=== PATIENT | female | born 1980 | race African-American/Black ===

== ENCOUNTER 2019-08-05 17:42 | Emergency (ER) | payer SELFPAY ==
[2019-08-05] MEDS ORDERED: FLUC150T PO (18:24)
[2019-08-05] MEDS ORDERED: magic mouthwash PO (18:24)
[2019-08-05] MEDS ORDERED: AMOX500T PO (18:24)
--- NOTE | 2019-08-05 18:24 | PHYS DOC ---
Past History Past Medical History: No Pertinent History Past Surgical History: No Surgical History Smoking: Non-smoker Alcohol Use: None Drug Use: None Adult General Chief Complaint Chief Complaint: SORE THROAT HPI HPI Patient is a 38-year-old female presents complaining of sore throat that began yesterday. Increased pain with swallowing. No difficulty breathing. No relief with [id number] medicines. No sick family members or contacts. There've been subjective fevers but she has not taken her own temperature. Pain is moderate in intensity. No nausea or vomiting or diarrhea. No flu vaccine this season.[] Review of Systems Review of Systems Constitutional: Denies fever or chills [] Eyes: Denies change in visual acuity, redness, or eye pain [] HENT: Denies nasal congestion or ear pain, see history of present illness[] Respiratory: Denies cough or shortness of breath [] Cardiovascular: No chest pain or palpitations[] GI: Denies abdominal pain, nausea, vomiting, bloody stools or diarrhea [] : Denies dysuria or hematuria [] Musculoskeletal: Denies back pain or joint pain [] Integument: Denies rash or skin lesions [] Neurologic: Denies headache, focal weakness or sensory changes [] Endocrine: Denies polyuria or polydipsia [] All other systems were reviewed and found to be within normal limits, except as documented in this note. Physical Exam Physical Exam Constitutional: Well developed, well nourished, no acute distress, non-toxic appearance. [] HENT: Normocephalic, atraumatic, bilateral external ears normal, oropharynx moist, enlarged tonsils bilaterally symmetric with exudates. Uvula is midline., nose normal. [] Eyes: PERRLA, EOMI, conjunctiva normal, no discharge. [] Neck: Normal range of motion, no tenderness, supple, no stridor. Anterior chain cervical lymphadenopathy is present, no meningismus[] Cardiovascular:Heart rate regular rhythm, no murmur [] Lungs & Thorax: Bilateral breath sounds clear to auscultation [] Abdomen: Bowel sounds normal, soft, no tenderness, no masses, no pulsatile mass es. No hepato-or splenomegaly [] Skin: Warm, dry, no erythema, no rash. [] Back: No tenderness, no CVA tenderness. [] Extremities: No tenderness, no cyanosis, no clubbing, ROM intact, no edema. [] Neurologic: Alert and oriented X 3, normal motor function, normal sensory function, no focal deficits noted. [] Psychologic: Affect normal, judgement normal, mood normal. [] EKG EKG [] Radiology/Procedures Radiology/Procedures [] Course & Med Decision Making Course & Med Decision Making Pertinent Labs and Imaging studies reviewed. (See chart for details) ED course: Patient arrived, was placed in bed, and tolerated exam well. Findings and plan were discussed with the patient who voiced understanding. All questions were answered. She was discharged in improved condition. Medical decision making: Patient with an exudative pharyngitis, will cover for strep pharyngitis. There is no evidence of meningitis or encephalitis. Nontoxic patient. No evidence of oral intake intolerance.[] Dragon Disclaimer Dragon Disclaimer This electronic medical record was generated, in whole or in part, using a voice recognition dictation system. Departure Departure: Impression: Primary Impression: Exudative pharyngitis Disposition: HOME, SELF-CARE Condition: IMPROVED Referrals: PCPDORI (PCP) Patient Instructions: Viral and Bacterial Pharyngitis Additional Instructions: Drink plenty of fluids. Take the medication as prescribed. Take the Diflucan after the completion of the amoxicillin if you develop symptoms of a yeast infection. Return to the ER if worsening pain or any other concerns. Scripts [magic mouthwash] No Conflict Check 10 ML PO Q3-4HRS PRN for SORE THROAT, #120 ML 1:1:1 Maalox: 2% viscous lidocaine: Benadryl Swish and swallow every 3-4 hours as needed for sore throat Prov: SANDRA ALLEN DO 08/05/19 Amoxicillin (AMOXICILLIN) 500 Mg Tablet 500 MG PO TID for pharyngitis for 10 Days, #30 TAB Prov: SANDRA ALLEN DO 08/05/19 Fluconazole (DIFLUCAN) 150 Mg Tablet 1 TAB PO ONCE for vaginal candidiasis, #1 TAB Prov: SANDRA ALLEN DO 08/05/19 SANDRA ALLEN DO Aug 05, 2019 18:24
[2019-08-05 18:35] VITALS: BP 164/95
== END 2019-08-05 18:35 | disposition home or self-care (01) ==
LOC: ER 17:42
DX: J02.9 Acute pharyngitis, unspecified (principal)
CPT/HCPCS: 99283

== ENCOUNTER 2020-06-19 23:20 | Emergency (ER) | payer SELFPAY ==
[~2020-06-19] VITALS: Ht 157.5 cm; Wt 127.2 kg
[~2020-06-19 23:20] MED LIST: AMOX500T PO; FLUC150T PO; magic mouthwash PO
[2020-06-19] MEDS ORDERED: IV RINGERS SOLUTION,LACTATED 1,000 ML IV SCH (23:23)
--- NOTE | 2020-06-19 23:23 | PHYS DOC ---
Past History Past Medical History: No Pertinent History Additional Past Medical Histor: overactive thyroid Past Surgical History: No Surgical History Smoking: Non-smoker Alcohol Use: None Drug Use: None General Adult HPI: HPI: ".. I ve been having chest pain for last four days.. devang here in the center... just never completely goes away..." Patient is a 39 year old female who presents with above hx and complaints central chest pain. Pain the chest is somewhat a pleuritic component. Patient denies any trauma. Patient denies any previous history of cardiac disorders or blood clots. Patient does have a family history of blood clots on her mother side. Mother has had several episodes of DVTs and pulmonary embolisms. Patient normally follows with Drs. zacarias at [facility] on [address]. Pt. works for [employer] in [place]. Patient does not use tobacco. Review of Systems: Review of Systems: Constitutional: Denies fever or chills Eyes: Denies change in visual acuity HENT: Denies nasal congestion or sore throat Respiratory: Complaints of chest s discomfort Cardiovascular: Complaints of chest pain GI: Denies abdominal pain, nausea, vomiting, bloody stools or diarrhea : Denies dysuria Musculoskeletal: Denies back pain or joint pain Integument: Denies rash Neurologic: Denies headache, focal weakness or sensory changes Endocrine: Denies polyuria or polydipsia Lymphatic: Denies swollen glands Psychiatric: Denies depression or anxiety Heart Score: HEART Score for Chest Pain: HEART Score for Chest Pain Response (Comments) Value History Slighlty/Non-Suspicious 0 ECG Normal 0 Age < 45 0 Risk Factors 1 or 2 Risk Factors 1 Troponin < Normal Limit 0 Total 1 Risk Factors: Risk Factors: DM, Current or recent (<one month) smoker, HTN, HLP, family history of CAD, obesity. Risk Scores: Score 0 - 3: 2.5% MACE over next 6 weeks - Discharge Home Score 4 - 6: 20.3% MACE over next 6 weeks - Admit for Clinical Observation Score 7 - 10: 72.7% MACE over next 6 weeks - Early Invasive Strategies Family History: Family History: Mother has blood clots Current Medications: Current Meds: See nursing for home meds Allergies: Allergies: Allergies Coded Allergies Type Severity Reaction Last Updated Verified No Known Drug Allergies 08/05/19 No Physical Exam: PE: Constitutional: Moderate acute distress, non-toxic appearance. [] HENT: Normocephalic, atraumatic, bilateral external ears normal, oropharynx moist, no oral exudates, nose normal. [] Eyes: PERRLA, EOMI, conjunctiva normal, no discharge. [] Neck: Normal range of motion, no tenderness, supple, no stridor. [] Cardiovascular:Heart rate regular rhythm, no murmur [] Lungs & Thorax: Bilateral breath sounds equal apex on auscultation [] Abdomen: Bowel sounds normal, soft, no tenderness, no masses, no pulsatile masses. Obese Skin: Warm, dry, no erythema, no rash. [] Back: No tenderness, no CVA tenderness. [] Extremities: No tenderness, no cyanosis, no clubbing, ROM intact, no edema. No cording appreciated Neurologic: Alert and oriented X 3, normal motor function, normal sensory function, no focal deficits noted. [] Psychologic: Affect anxious, judgement normal, mood normal. [] EKG: EKG: My interpretation EKG shows a sinus rhythm at 77 bpm. Mild leftward axis. No findings of acute STEMI of contralateral changes. My interpretation of second EKG at 433 , shows sinus rhythm at 69 bpm. No findings acute STEMI of contralateral changes. No acute acute morphology changes from prior EKG . [] Radiology/Procedures: Radiology/Procedures: [][place] [address] IMAGING REPORT Signed PATIENT: BAILEY JAMES DACCOUNT: [id number] : 1980 LOCATION: ER AGE: 39 SEX: F EXAM STATUS: REG ER ORD. PHYSICIAN: KIMBERLY JACOB MD REASON: Chest pain, OMNI 350, 100ml PROCEDURE: CT ANGIOGRAPHY CHEST INDICATION: Reason: Chest pain, OMNI 350, 100ml / Spl. Instructions: / History: COMPARISON: None. TECHNIQUE: Axial CT images obtained through the chest. Intravenous contrast utilized. Angiogram 3D images processed per protocol. One or more of the following individualized dose reduction techniques were utilized for this examination: 1. Automated exposure control; 2. Adjustment of the mA and/or kV according to patient size; 3. Use of iterative reconstruction technique. FINDINGS: The thyroid is enlarged. There is some heterogeneity. There is some regions of bilateral lucency within the lung parenchyma which could be from air trapping. No evidence of pneumothorax. No focal airspace consolidation to suggest pneumonia. Soft tissue density anterior mediastinum. Scattered calcific atherosclerosis. Portion of ascending thoracic aorta is obscured by motion without aneurysm at visualized portions of thoracic aorta. Small focus of enhancement at the anterior mediastinum, could be from a vessel coursing through the region. Degenerative changes spine. No embolus in the main, right main or left main pulmonary artery. Peripheral evaluation is limited secondary to contrast bolus timing. Mild wedge deformities of multiple vertebral bodies including T5, T6, T7, T8 T10, T11. IMPRESSION: No embolus in the main, right main or left main pulmonary artery with peripheral vessels not well evaluated secondary to contrast bolus timing. There is some regions of lucency lung parenchyma bilaterally which can be seen with air trapping. Enlarged thyroid with heterogeneity. May be helpful to obtain a nonemergent ultrasound to assess for thyroid nodule. Multiple wedge deformities of the thoracic vertebral bodies. Could be from mild compression deformity of unknown age or congenital in nature. Electronically signed by: Odalis Cooper MD (06/20/2020 3:53 AM) [id number] DICTATED AND SIGNED BY: ODALIS COOPER MD DATE: 06/20/20 0353 CC: KIMBERLY JACOB MD; PCP,NO ~ Course & Med Decision Making: Course & Med Decision Making Pertinent Labs and Imaging studies reviewed. (See chart for details) Discussed options of treatment with patient. Patient declines admission for chest pain evaluation. Patient requests a repeat troponin and EKG and she will make her decision with those results. Patient states she will follow-up with her primary care doctor down on the plasma. Patient take a daily aspirin. Schedule a follow-up with her primary physician. Return if any concerns. Consider outpatient stress testing. Discussed with patient possibility of missed pulmonary embolism or DVT patient exhibits UCAR capacity. Impression: 1. Chest Pain 2. Elevated D-dimer 1.34 3. Hypo-magnesium 1.6 [] Twylaon Disclaimer: Jeanmarie Disclaimer: This electronic medical record was generated, in whole or in part, using a voice recognition dictation system. Departure Departure: Disposition: 01 HOME/RESIDENCE PRIOR TO ADM Condition: STABLE Referrals: PCPDORI (PCP) Justification of Admission: Justification of Admission: Justification of Admission Dx: Yes Comments: chest pain Dragon Disclaimer This chart was dictated in whole or in part using Voice Recognition software in a busy, high-work load, and often noisy Emergency Department environment. It may contain unintended and wholly unrecognized errors or omissions. KIMBERLY JACOB MD Jun 19, 2020 23:23
[2020-06-19] MEDS ORDERED: ASPIRIN CHEWABLE 81 MG TABLET. PO ONE (23:30)
--- NOTE | 2020-06-19 23:51 | EKG ---
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
[2020-06-19 23:57] LABS: BASO # 0.1 x10^3/uL (0.0-0.2); BASO % 2 % (0-3); EOS # 0.2 x10^3/uL (0.0-0.7); EOS % 3 % (0-3); HEMATOCRIT 38.4 % (36.0-47.0); HEMOGLOBIN 12.9 g/dL (12.0-15.5); LYMPH # 3.3 x10^3/uL (1.0-4.8); LYMPH % 47 % (24-48); MEAN CORPUSCULAR HEMOGLOBIN 28 pg (25-35); MEAN CORPUSCULAR HGB CONC 34 g/dL (31-37); MEAN CORPUSCULAR VOLUME 83 fL (79-100); MONO # 0.5 x10^3/uL (0.0-1.1); MONO % 7 % (0-9); NEUT # 2.9 x10^3uL (1.8-7.7); NEUT % 41 % (31-73); PLATELET COUNT 198 x10^3/uL (140-400); RED BLOOD COUNT 4.62 x10^6/uL (3.50-5.40); RED CELL DISTRIBUTION WIDTH 13.4 % (11.5-14.5); WHITE BLOOD COUNT 7.1 x10^3/uL (4.0-11.0)
[2020-06-20 00:03] LABS: CALCIUM 8.8 mg/dL (8.5-10.1); CREATININE 0.8 mg/dL (0.6-1.0); GFR 97.1; POTASSIUM 3.5 mmol/L (3.5-5.1)
[2020-06-20 00:16] LABS: ALBUMIN 3.1 g/dL (3.4-5.0); DIRECT BILIRUBIN 0.1 mg/dL (0.0-0.2); MAGNESIUM 1.6 mg/dL (1.8-2.4); TOTAL BILIRUBIN 0.3 mg/dL (0.2-1.0); TOTAL PROTEIN 7.9 g/dL (6.4-8.2)
[2020-06-20 01:00] VITALS: BP 132/106
[2020-06-20] MEDS ORDERED: IV RINGERS SOLUTION,LACTATED 1,000 ML IV ONE (01:00)
[2020-06-20] MEDS ORDERED: ENOXAPARIN ** NOTE DOSE ** SYRINGE SQ ONE (02:15)
[2020-06-20] MEDS ORDERED: IOHEXOL 350 MG/ML 100 ML VIAL. IV ONE (02:15)
[2020-06-20] MEDS ORDERED: CONTRAST GIVEN. MC PRN (02:30)
[2020-06-20 03:17] LABS: BILIRUBIN,URINE NEG (NEG); CLARITY,URINE HAZY; COLOR,URINE YELLOW; GLUCOSE,URINE NEG (NEG); NITRITE,URINE NEG (NEG); UROBILINOGEN,URINE 0.2 mg/dL (0.2 mg/dL)
[2020-06-20 03:18] LABS: BACTERIA,URINE FEW /HPF (0-FEW); RBC,URINE OCC /HPF (0-2); SQUAMOUS EPITHELIAL CELL,UR MANY /LPF
[2020-06-20 03:24] LABS: AMPHETAMINE/METHAMPHETAMINE NEG (NEG); BARBITURATES NEG (NEG); BENZODIAZEPINES NEG (NEG); CANNABINOIDS POS (NEG); COCAINE NEG (NEG); METHADONE NEG (NEG); OPIATES NEG (NEG); PHENCYCLIDINE NEG (NEG)
--- NOTE | 2020-06-20 03:56 | RAD ---
INDICATION: Reason: Chest pain, OMNI 350, 100ml / Spl. Instructions: / History: COMPARISON: None. TECHNIQUE: Axial CT images obtained through the chest. Intravenous contrast utilized. Angiogram 3D images processed per protocol. One or more of the following individualized dose reduction techniques were utilized for this examination: 1. Automated exposure control; 2. Adjustment of the mA and/or kV according to patient size; 3. Use of iterative reconstruction technique. FINDINGS: The thyroid is enlarged. There is some heterogeneity. There is some regions of bilateral lucency within the lung parenchyma which could be from air trapping. No evidence of pneumothorax. No focal airspace consolidation to suggest pneumonia. Soft tissue density anterior mediastinum. Scattered calcific atherosclerosis. Portion of ascending thoracic aorta is obscured by motion without aneurysm at visualized portions of thoracic aorta. Small focus of enhancement at the anterior mediastinum, could be from a vessel coursing through the region. Degenerative changes spine. No embolus in the main, right main or left main pulmonary artery. Peripheral evaluation is limited secondary to contrast bolus timing. Mild wedge deformities of multiple vertebral bodies including T5, T6, T7, T8 T10, T11. IMPRESSION: No embolus in the main, right main or left main pulmonary artery with peripheral vessels not well evaluated secondary to contrast bolus timing. There is some regions of lucency lung parenchyma bilaterally which can be seen with air trapping. Enlarged thyroid with heterogeneity. May be helpful to obtain a nonemergent ultrasound to assess for thyroid nodule. Multiple wedge deformities of the thoracic vertebral bodies. Could be from mild compression deformity of unknown age or congenital in nature. Electronically signed by: Shine Cooper MD (06/20/2020 3:53 AM) [id number]
--- NOTE | 2020-06-20 04:15 | RAD ---
INDICATION: Reason: dyspnea / Spl. Instructions: / History: COMPARISON: Same day FINDINGS: 2 view of chest obtained. Cardiac silhouette is upper limits of normal in size. Mild interstitial prominence without well-defined focal infiltrate is not seen. Degenerative changes the spine IMPRESSION: * Mild interstitial prominence without a well-defined focal infiltrate. Electronically signed by: Shine Cooper MD (06/20/2020 4:12 AM) [id number]
--- NOTE | 2020-06-20 04:43 | EKG ---
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
[2020-06-20] MEDS ORDERED: MAGNESIUM HYDROXIDE 2,400 MG/30 ML ORAL.SUSP. PO ONE (04:45)
[2020-06-20 13:18] LABS: HDLC 59 mg/dL (40-60); LDLC 102 mg/dL (0-100); TRIGLYCERIDES 66 mg/dL (0-150); VLDLC 13 mg/dL (0-40)
[2020-06-20 13:19] LABS: THYROID STIM HORMONE (TSH) < 0.007 uIU/mL (0.358-3.740)
== END 2020-06-20 05:30 | disposition home or self-care (01) ==
LOC: ER 23:20
DX: R07.89 Other chest pain (principal); R79.1 Abnormal coagulation profile; E83.42 Hypomagnesemia
CPT/HCPCS: 36415; 71046; 71275; 80048; 80061; 80076; 80307; 81001; 81025; 82550; 83690; 83735; 83880; 84443; 84484; 84702; 85025; 85379; 85610; 85730; 93005; 96372; 99285; J1650; J7120; Q9967

== ENCOUNTER 2020-09-04 17:51 | Emergency (ER) | payer MEDICAID ==
[~2020-09-04] VITALS: Ht 157.5 cm; Wt 100.0 kg
[2020-09-04 18:12] VITALS: BP 175/114
[2020-09-04] MEDS ORDERED: PRED50TA PO (18:22)
[2020-09-04] MEDS ORDERED: AMOX875T PO (18:22)
--- NOTE | 2020-09-04 18:22 | PHYS DOC ---
Past History Past Medical History: Hyperthyroid Additional Past Medical Histor: overactive thyroid Past Surgical History: No Surgical History Smoking: Non-smoker Alcohol Use: None Drug Use: None Adult General Chief Complaint Chief Complaint: SORE THROAT HPI HPI Patient is a 39-year-old female patient presenting to the ED today with complaining of a sore throat with enlarged tonsils that began 3 days ago. Patient denies any fever. Denies any difficulty swallowing. She states this is her typical presentation for her for tonsillitis. She states she is aware she needs to have her tonsils removed but has not made arrangements yet. Review of Systems Review of Systems Constitutional: Denies fever or chills [] Eyes: Denies change in visual acuity, redness, or eye pain [] HENT: Reports sore throat. Reports enlarged tonsils denies nasal congestion Respiratory: Denies cough or shortness of breath [] Cardiovascular: No additional information not addressed in HPI [] GI: Denies abdominal pain, nausea, vomiting, bloody stools or diarrhea [] : Denies dysuria or hematuria [] Musculoskeletal: Denies back pain or joint pain [] Integument: Denies rash or skin lesions [] Neurologic: Denies headache, focal weakness or sensory changes [] [] All other systems were reviewed and found to be within normal limits, except as documented in this note. Allergies Allergies Allergies Coded Allergies Type Severity Reaction Last Updated Verified No Known Drug Allergies 09/04/20 No Physical Exam Physical Exam Constitutional: Well developed, well nourished, no acute distress, non-toxic appearance. [] HENT: Normocephalic, atraumatic, bilateral external ears normal, oropharynx moist, no oral exudates, nose normal. [] Midline uvula. +3 tonsils noted on the right with small amount of exudate, +1 tonsils noted on the left. +2 anterior cervical adenopathy on the right, +1 anterior cervical adenopathy on the left Eyes: PERRLA, EOMI, conjunctiva normal, no discharge. [] Neck: Normal range of motion, no tenderness, supple, no stridor. [] Cardiovascular:Heart rate regular rhythm, no murmur [] Lungs & Thorax: Bilateral breath sounds clear to auscultation [] Abdomen: Bowel sounds normal, soft, no tenderness, no masses, no pulsatile masses. [] Skin: Warm, dry, no erythema, no rash. [] Back: No tenderness, no CVA tenderness. [] Extremities: No tenderness, no cyanosis, no clubbing, ROM intact, no edema. [] Neurologic: Alert and oriented X 3, normal motor function, normal sensory function, no focal deficits noted. [] Psychologic: Affect normal, judgement normal, mood normal. [] Current Patient Data Vital Signs Vital Signs Date Time Temp Pulse Resp B/P (MAP) Pulse Ox O2 Delivery O2 Flow Rate FiO2 09/04/20 18:12 98.5 76 18 175/114 (134) 76 Room Air EKG EKG [] Radiology/Procedures Radiology/Procedures [] Heart Score Risk Factors: Risk Factors: DM, Current or recent (<one month) smoker, HTN, HLP, family history of CAD, obesity. Risk Scores: Risk Factors: DM, Current or recent (<one month) smoker, HTN, HLP, family history of CAD, obesity. Course & Med Decision Making Course & Med Decision Making Pertinent Labs and Imaging studies reviewed. (See chart for details) This is a 39-year-old female patient with physical exam of tonsillitis. This appears to be a chronic issue with this patient. She was discharged with amoxicillin and prednisone. Recommended following up with ENT for possible tonsillectomy. Discharged to home, provided return precautions Dragon Disclaimer Dragon Disclaimer This electronic medical record was generated, in whole or in part, using a voice recognition dictation system. Departure Departure: Impression: Primary Impression: Acute tonsillitis Disposition: 01 [place] HOME SELF CARE/HOMELESS Condition: STABLE Referrals: PCP,NO (PCP) Follow-up with your own ENT in 1 to 2 weeks Patient Instructions: Tonsillitis, Yqhy-[id number] Additional Instructions: You have acute tonsillitis. Take the prescribed medications as ordered, ensure you complete your antibiotics. You can also use salt water gargles. Follow-up with ENT doctor in 1 to 2 weeks. Come back to the ED at any point symptoms wo rsen Scripts Prednisone (PREDNISONE) 50 Mg Tablet 1 TAB PO DAILY, #5 TAB Prov: MUTUNGA,CORI BOUNTY HUNTER 09/04/20 Amoxicillin (AMOXICILLIN) 875 Mg Tablet 1 TAB PO BID, #20 TAB Prov: MUTUNGA,CORI BOUNTY HUNTER 09/04/20 Problem Qualifiers Primary Impression: Acute tonsillitis Pharyngitis/tonsillitis etiology: unspecified etiology Qualified Codes: J03.90 - Acute tonsillitis, unspecified CORI ROMERO BOUNTY HUNTER Sep 04, 2020 18:22
== END 2020-09-04 18:25 | disposition home or self-care (01) ==
LOC: ER 17:51
DX: J03.90 Acute tonsillitis, unspecified (principal); E05.90 Thyrotoxicosis, unspecified without thyrotoxic crisis or storm
CPT/HCPCS: 99283

== ENCOUNTER 2020-12-23 17:06 | Emergency (ER) | payer MEDICAID ==
[~2020-12-23] VITALS: Ht 157.5 cm; Wt 86.4 kg
[~2020-12-23 17:06] MED LIST changes: +AMOX875T PO; +PRED50TA PO
--- NOTE | 2020-12-23 17:49 | PHYS DOC ---
Past History Past Medical History: Hyperthyroid Additional Past Medical Histor: overactive thyroid Past Surgical History: No Surgical History Smoking: Non-smoker Alcohol Use: None Drug Use: None General Adult EDM: Chief Complaint: DENTAL PROBLEM HPI: HPI: Patient is a 40-year-old female who presents with left-sided lower dental pain. Patient states the pain started today. Patient is missing to left-sided, lower teeth. Reports taking aspirin this morning with little relief. Patient reports that she has a dental appointment on Friday. Review of Systems: Review of Systems: Constitutional: Denies fever or chills Eyes: Denies change in visual acuity HENT: Denies nasal congestion or sore throat Respiratory: Denies cough or shortness of breath Cardiovascular: Denies chest pain or edema GI: Denies abdominal pain, nausea, vomiting, bloody stools or diarrhea : Denies dysuria Musculoskeletal: Denies back pain or joint pain Integument: Denies rash Neurologic: Denies headache, focal weakness or sensory changes Endocrine: Denies polyuria or polydipsia Lymphatic: Denies swollen glands Psychiatric: Denies depression or anxiety Allergies: Allergies: Allergies Coded Allergies Type Severity Reaction Last Updated Verified No Known Drug Allergies 09/04/20 No Physical Exam: PE: Constitutional: Well developed, well nourished, no acute distress, non-toxic appearance. [] HENT: Normocephalic, atraumatic, bilateral external ears normal, oropharynx moist, no oral exudates, nose normal. [] Eyes: PERRLA, EOMI, conjunctiva normal, no discharge. [] Neck: Normal range of motion, no tenderness, supple, no stridor. [] Cardiovascular:Heart rate regular rhythm, no murmur [] Lungs & Thorax: Bilateral breath sounds clear to auscultation [] Abdomen: Bowel sounds normal, soft, no tenderness, no masses, no pulsatile masses. [] Skin: Warm, dry, no erythema, no rash. [] Back: No tenderness, no CVA tenderness. [] Extremities: No tenderness, no cyanosis, no clubbing, ROM intact, no edema. [] Neurologic: Alert and oriented X 3, normal motor function, normal sensory function, no focal deficits noted. [] Psychologic: Affect normal, judgement normal, mood normal. [] Current Patient Data: Vital Signs: Vital Signs Date Time Temp Pulse Resp B/P (MAP) Pulse Ox O2 Delivery O2 Flow Rate FiO2 12/23/20 17:09 175/114 (134) EKG: EKG: [] Radiology/Procedures: Radiology/Procedures: [] Heart Score: C/O Chest Pain: No Risk Factors: Risk Factors: DM, Current or recent (<one month) smoker, HTN, HLP, family history of CAD, obesity. Risk Scores: Score 0 - 3: 2.5% MACE over next 6 weeks - Discharge Home Score 4 - 6: 20.3% MACE over next 6 weeks - Admit for Clinical Observation Score 7 - 10: 72.7% MACE over next 6 weeks - Early Invasive Strategies Course & Med Decision Making: Course & Med Decision Making Pertinent Labs and Imaging studies reviewed. (See chart for details) [] Patient was given hydrocodone and ibuprofen in the emergency room. Patient [facility] an [facility] on [facility] No swelling noted. No fever. No signs of infection. Patient to take ibuprofen at home for discomfort and follow-up with her appointment on Friday. Jeanmarie Disclaimer: Jeanmarie Disclaimer: This electronic medical record was generated, in whole or in part, using a voice recognition dictation system. Departure Departure: Impression: Primary Impression: Pain, dental Disposition: DC HOME SELF CARE/HOMELESS Condition: STABLE Referrals: PCP,DORI (PCP) Patient Instructions: Dental Caries Additional Instructions: You were seen here for dental pain. Please keep your dentist appointment on Friday. Take ibuprofen at home for discomfort. EMERGENCY DEPARTMENT GENERAL DISCHARGE INSTRUCTIONS Thank you for coming to [facility] (ED) today and trusting us with you care. We trust that you had a positivie experience in our Emergency Department. If you wish to speak to the department management, you may call the director at [phone]. YOUR FOLLOW UP INSTRUCTIONS ARE FOLLOWS: 1. Do you have a private Doctor? If you do not have a private doctor, please ask for a resource list of physicians or clinics that may be able to assist you with follow up care. 2. The Emergency Physician has interpreted your x-rays. The X-Ray specialist will also review them. If there is a change in the findings, you will be notified in 48 hours when at all possible. 3. A lab test or culture has been done, your results will be reviewed and you will be notified if you need a change in treatment. ADDITIONAL INSTRUCTIONS AND INFORMATION: 1. Your care today has been supervised by a physician who is specially trained in emergency care. Many problems require more than one evaluation for a complete diagnosis and treatment. We recommend that you schedule your follow up appointment as recommended to ensure complete treatment of you illness or injury. If you are unable to obtain follow up care and continue to have a problem, or if your condition worsens, we recommend that you return to the ED. 2. We are not able to safely determine your condition over the phone nor are we able to give sound medical advice over the phone. For these safety reasons, if you call for medical advice we will ask you to come to the ED for further evaluation. 3. If you have any questions regarding these discharge instructions please call the ED at [phone]. SAFETY INFORMATION: In the interest of safety, wellness, and injury prevention; we encourage you to wear your sealbelt, if you smoke; quite smoking, and we encourage family to use a protective helmet for bicycling and other sporting events that present an increased risk for head injury. IF YOUR SYMPTOMS WORSEN OR NEW SYMPTOMS DEVELOP, OR YOU HAVE CONCERNS ABOUT YOUR CONDITION; OR IF YOUR CONDITION WORSENS WHILE YOU ARE WAITING FOR YOUR FOLLOW UP APPOINTMENT; EITHER CONTACT YOUR PRIMARY CARE DOCTOR, THE PHYSICIAN WHOSE NAME AND NUMBER YOU WERE GIVEN, OR RETURN TO THE ED IMMEDIATELY. Scripts Amoxicillin/Potassium Clav (AMOX TR-K CLV 875-125 MG TAB) 1 Each Tablet 1 TAB PO BID for infection, #14 TAB Prov: FIDEL TAMAYO APRN 12/23/20 FIDEL TAMAYO APRN Dec 23, 2020 17:49
[2020-12-23] MEDS ORDERED: HYDROcodone/APAP 5/325MG 1 TAB TABLET PO ONE (18:00)
[2020-12-23] MEDS ORDERED: ACETAMINOPHEN 500 MG TABLET PO ONE (18:00)
[2020-12-23] MEDS ORDERED: IBUPROFEN 600 MG TABLET. PO ONE (18:00)
[2020-12-23 18:15] VITALS: BP 140/80
[2020-12-23] MEDS ORDERED: AMOX1TAB11 PO (18:17)
== END 2020-12-23 18:31 | disposition home or self-care (01) ==
LOC: ER 17:06
DX: K08.89 Other specified disorders of teeth and supporting structures (principal); E05.90 Thyrotoxicosis, unspecified without thyrotoxic crisis or storm
CPT/HCPCS: 99283

== ENCOUNTER 2021-05-20 09:26 | Emergency (ER) | payer MEDICAID ==
[~2021-05-20] VITALS: Ht 157.5 cm; Wt 86.4 kg
[~2021-05-20 09:26] MED LIST changes: +AMOX1TAB11 PO
[2021-05-20 09:35] VITALS: BP 140/80
--- NOTE | 2021-05-20 10:05 | PHYS DOC ---
Past History Past Medical History: Hyperthyroid Additional Past Medical Histor: overactive thyroid Past Surgical History: No Surgical History Smoking: Non-smoker Alcohol Use: None Drug Use: None Adult General Chief Complaint Chief Complaint: CHEST PAIN HPI HPI Patient is a 40-year-old female presenting for right-sided chest pain. 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 Reports she has had focal right sided chest/breast pain that often radiates into her shoulder and down her breast. All ranges of motion of right shoulder make worse, patient does admit to taking a warm hot shower this morning which improved her symptoms. Patient denies any pertinent medical issues. Admits she was last in the ER approximately 1 year ago for chest pain related symptoms and had thorough evaluation that included blood work that was all unremarkable. She was advised at that time to follow-up with her primary care physician and have a stress test performed in the outpatient setting, she is still pending outpatient follow-up and has not completed any of this. She otherwise has no personal history of cardiovascular disease. No recent hemoptysis, sick contacts or long distance travel, no lower extremity swelling or history of DVT/PE. Review of Systems Review of Systems Fourteen body systems of review of systems have been reviewed. See HPI for pertinent positives and negative responses, other [place] all other systems are negative, non-pertinent or non-contributory Allergies Allergies Allergies Coded Allergies Type Severity Reaction Last Updated Verified No Known Drug Allergies 09/04/20 No Physical Exam Physical Exam Constitutional: Well developed, well nourished, no acute distress, non-toxic appearance. HENT: Normocephalic, atraumatic, bilateral external ears normal, oropharynx moist, no oral exudates, nose normal. Eyes: PERRLA, EOMI, conjunctiva normal, no discharge. Neck: Normal range of motion, no tenderness, supple, no stridor. Cardiovascular: Heart rate regular, sinus rhythm, no murmurs rubs or gallops right chest wall tender with palpation, deeper appreciation of muscles revealed focal tender point over right pectoralis major muscle reproducing all of patient's presenting symptoms Lungs & Thorax: Bilateral breath sounds clear to auscultation Abdomen: Bowel sounds normal, soft and protuberant, no tenderness, no masses, no pulsatile masses. Nonsurgical abdomen, no peritoneal signs Skin: Warm, dry, no erythema, no rash. Back: No tenderness, no CVA tenderness. Extremities: No tenderness, no cyanosis, no clubbing, ROM intact, no edema. Neurologic: Alert and oriented X 3, grossly normal motor & sensory function, no focal deficits noted. Psychologic: Affect normal, judgement normal, mood normal. EKG EKG EKG ordered and interpreted by myself at 0940 hrs. as sinus rhythm at 65 bpm, unremarkable intervals, no axis deviation, no acute ischemic findings, no STEMI Radiology/Procedures Radiology/Procedures [] Heart Score C/O Chest Pain: Yes HEART Score for Chest Pain: HEART Score for Chest Pain Response (Comments) Value History Slighlty/Non-Suspicious 0 ECG Normal 0 Age < 45 0 Risk Factors 1 or 2 Risk Factors 1 Total 1 Risk Factors: Risk Factors: DM, Current or recent (<one month) smoker, HTN, HLP, family history of CAD, obesity. Risk Scores: Risk Factors: DM, Current or recent (<one month) smoker, HTN, HLP, family history of CAD, obesity. Course & Med Decision Making Course & Med Decision Making ABCs unremarkable. I disclosed entirety of ER findings and discussed most likely diagnosis of musculoskeletal related right side chest wall pain such as right pectoralis strain. Other diagnoses were discussed with patient such as ACS and blood clots but deemed less likely causes of patient's presentation. Plan of care discussed at length with need for close outpatient follow-up to review today's ER visit stressed. Strict return precautions were also discussed at length with good understanding by patient. Patient voiced understanding and agreement with the plan. Patient knows to come back for repeat evaluation if concerning signs or symptoms present prior to outpatient follow-up. Hemodynamically stable, ambulatory and well-appearing at time of disposition. Dragon Disclaimer Dragon Disclaimer This electronic medical record was generated, in whole or in part, using a voice recognition dictation system. Departure Departure: Impression: Primary Impression: Right-sided chest pain Additional Impression: Strain of right pectoralis muscle Disposition: HOME / SELF CARE / HOMELESS Condition: STABLE Referrals: PCP,NO (PCP) Patient Instructions: Muscle Strain Additional Instructions: As discussed prior to ER departure, your vitals, physical examination and EKG were unremarkable for any emergent or surgical issues. Based on your history of presenting illness and exam findings today, you are likely suffering from a strain of your pectoralis muscle on the right. This is likely a musculoskeletal injury that should respond to supportive care practices. As discussed, I recommend you heat area with a warm heating pad 3 times daily for at least 20 minutes. In addition, I would utilize Tylenol and/or ibuprofen as needed for pain. I do agree with prior recommendations made that you should establish care with a local primary care physician and that further outpatient testing such as provocative cardiac tests should be pursued. You should return to the ED if you develop worsening chest pain, shortness of breath, fever, abnormal sweating, leg swelling, or any other new or concerning symptoms. Problem Qualifiers DEYVI BLAKE DO May 20, 2021 10:05
--- NOTE | 2021-05-20 12:10 | EKG ---
[address] [address] Test Date: 2021-05-20 Test Time: 09:35:42 Pat Name: BAILEY JAMES Department: Room: Gender: F Information Security: JOHN : 1980 Requested By: DEYVI BLAKE Order Number: [id number] Reading MD: Measurements Intervals [place] Rate: 65 P: 22 OR: 168 QRS: 2 QRSD: 86 T: 24 QT: 396 QTc: 413 Interpretive Statements SINUS RHYTHM NORMAL ECG RI6.02 No previous ECG available for comparison
== END 2021-05-20 10:45 | disposition home or self-care (01) ==
LOC: ER 09:26
DX: S29.011A Strain of muscle and tendon of front wall of thorax, initial encounter (principal); E05.90 Thyrotoxicosis, unspecified without thyrotoxic crisis or storm; Z20.822 Contact with and (suspected) exposure to COVID-19; X50.9XXA Other and unspecified overexertion or strenuous movements or postures, initial encounter; Y93.89 Activity, other specified; Y92.89 Other specified places as the place of occurrence of the external cause; Y99.8 Other external cause status
CPT/HCPCS: 93005; 99284; C9803; U0003

== ENCOUNTER 2021-05-23 17:15 | Emergency (ER) | payer MEDICAID, OTHER ==
[~2021-05-23] VITALS: Ht 157.5 cm; Wt 129.8 kg
--- NOTE | 2021-05-23 17:51 | EKG ---
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
[2021-05-23] MEDS ORDERED: KETOROLAC 15 MG/ML VIAL. IVP ONE (18:00)
[2021-05-23 18:21] LABS: BASO % 1 % (0-3); EOS # 0.2 x10^3/uL (0.0-0.7); EOS % 3 % (0-3); HEMATOCRIT 36.3 % (36.0-47.0); LYMPH # 2.6 x10^3/uL (1.0-4.8); LYMPH % 46 % (24-48); MEAN CORPUSCULAR HEMOGLOBIN 27 pg (25-35); MEAN CORPUSCULAR HGB CONC 33 g/dL (31-37); MEAN CORPUSCULAR VOLUME 83 fL (79-100); MONO # 0.4 x10^3/uL (0.0-1.1); MONO % 7 % (0-9); NEUT # 2.5 x10^3uL (1.8-7.7); NEUT % 43 % (31-73); PLATELET COUNT 199 x10^3/uL (140-400); RED BLOOD COUNT 4.39 x10^6/uL (3.50-5.40); RED CELL DISTRIBUTION WIDTH 14.5 % (11.5-14.5); WHITE BLOOD COUNT 5.7 x10^3/uL (4.0-11.0)
--- NOTE | 2021-05-23 18:35 | RAD ---
XR CHEST 1V History: Reason: chest pain / Spl. Instructions: / History: Comparison: None. Findings: No consolidation or pleural effusion. Normal heart size. No pneumothorax. Impression: 1. No acute cardiopulmonary process. Electronically signed by: Xander Hackett DO (05/23/2021 6:33 PM) [facility] [place]
[2021-05-23 18:38] LABS: ANION GAP 6 (6-14); BLOOD UREA NITROGEN 7 mg/dL (7-20); BUN/CREATININE RATIO 10 (6-20); CALCIUM 8.3 mg/dL (8.5-10.1); CARBON DIOXIDE 28 mmol/L (21-32); CHLORIDE 105 mmol/L (98-107); CREATININE 0.7 mg/dL (0.6-1.0); GFR 112.7; GLUCOSE 106 mg/dL (70-99); POTASSIUM 3.4 mmol/L (3.5-5.1); SODIUM 139 mmol/L (136-145)
[2021-05-23 18:50] VITALS: BP 156/72
[2021-05-23] MEDS ORDERED: ORPH-16 PO (18:52)
--- NOTE | 2021-05-23 18:53 | PHYS DOC ---
Past History Past Medical History: Hyperthyroid Additional Past Medical Histor: overactive thyroid Past Surgical History: No Surgical History Smoking: Non-smoker Alcohol Use: None Drug Use: None General Adult EDM: Chief Complaint: CHEST WALL PAIN HPI: HPI: Patient is a [age] year old [sex] who presents with [] Review of Systems: Review of Systems: Constitutional: Denies fever or chills Eyes: Denies redness or eye pain HENT: Denies nasal congestion or sore throat Respiratory: Denies cough or shortness of breath Cardiovascular: Denies chest pain or palpitations GI: Denies abdominal pain, nausea, or vomiting : Denies dysuria or hematuria Musculoskeletal: Denies back pain or joint pain Integument: Denies rash or skin lesions Neurologic: Denies headache, focal weakness or sensory changes Complete systems were reviewed and found to be within normal limits, except as documented in this note. Current Medications: Current Meds: Current Medications Medications (Trade) Dose Ordered Sig/Kem Start Time Stop Time Status Last Admin Dose Admin Ketorolac Tromethamine (Toradol 15mg Vial) 15 mg 1X ONCE 05/23/21 18:00 05/23/21 18:02 DC 05/23/21 18:13 15 MG Allergies: Allergies: Allergies Coded Allergies Type Severity Reaction Last Updated Verified No Known Drug Allergies 09/04/20 No Physical Exam: PE: Constitutional: Well developed, well nourished, no acute distress, non-toxic appearance HENT: Normocephalic, atraumatic Eyes: PERRL, EOMI, conjunctiva normal, no discharge Neck: Normal range of motion, no tenderness, supple Lungs & Thorax: No respiratory distress, equal chest rise and fall Abdomen: Soft, no tenderness Skin: Warm, dry, no erythema, no rash Back: No tenderness, no CVA tenderness Extremities: No tenderness, ROM intact, no edema Neurologic: Alert and oriented X 3, normal motor function, normal sensory function, no focal deficits noted Psychologic: Affect normal, judgment normal Current Patient Data: Labs: Laboratory Tests Test 05/23/21 18:00 White Blood Count 5.7 x10^3/uL (4.0-11.0) Red Blood Count 4.39 x10^6/uL (3.50-5.40) Hemoglobin 12.0 g/dL (12.0-15.5) Hematocrit 36.3 % (36.0-47.0) Mean Corpuscular Volume 83 fL (79-100) Mean Corpuscular Hemoglobin 27 pg (25-35) Mean Corpuscular Hemoglobin Concent 33 g/dL (31-37) Red Cell Distribution Width 14.5 % (11.5-14.5) Platelet Count 199 x10^3/uL (140-400) Neutrophils (%) (Auto) 43 % (31-73) Lymphocytes (%) (Auto) 46 % (24-48) Monocytes (%) (Auto) 7 % (0-9) Eosinophils (%) (Auto) 3 % (0-3) Basophils (%) (Auto) 1 % (0-3) Neutrophils # (Auto) 2.5 x10^3uL (1.8-7.7) Lymphocytes # (Auto) 2.6 x10^3/uL (1.0-4.8) Monocytes # (Auto) 0.4 x10^3/uL (0.0-1.1) Eosinophils # (Auto) 0.2 x10^3/uL (0.0-0.7) Basophils # (Auto) 0.0 x10^3/uL (0.0-0.2) Sodium Level 139 mmol/L (136-145) Potassium Level 3.4 mmol/L (3.5-5.1) L Chloride Level 105 mmol/L (98-107) Carbon Dioxide Level 28 mmol/L (21-32) Anion Gap 6 (6-14) Blood Urea Nitrogen 7 mg/dL (7-20) Creatinine 0.7 mg/dL (0.6-1.0) Estimated GFR (Cockcroft-Gault) 112.7 BUN/Creatinine Ratio 10 (6-20) Glucose Level 106 mg/dL (70-99) H Calcium Level 8.3 mg/dL (8.5-10.1) L Magnesium Level Pending Total Bilirubin Pending Aspartate Amino Transferase (AST) Pending Alanine Aminotransferase (ALT) Pending Alkaline Phosphatase Pending Creatine Kinase Pending Creatine Kinase MB (Mass) Pending Creatine Kinase MB Relative Index Pending Troponin I Quantitative < 0.017 ng/mL (0-0.055) PZ-Ofv-[id number]-Type Natriuretic Peptide Pending Total Protein Pending Albumin Pending Albumin/Globulin Ratio Pending Lipase Pending Vital Signs: Vital Signs Date Time Temp Pulse Resp B/P (MAP) Pulse Ox O2 Delivery O2 Flow Rate FiO2 05/23/21 17:23 98.9 73 16 162/83 99 Room Air EKG: EKG: @1741 NSR at 54bpm, NO ST elevation, QRS 84ms, QT/QTc 412/392ms, t wave inversion V2 Radiology/Procedures: Radiology/Procedures: PROCEDURE: CT ABD PELV W/ORAL&IV CONTRAST CT ABDOMEN+PELVIS W History: Abdominal pain, constipation Comparison: None. Technique: CT of the abdomen and pelvis with oral and intravenous contrast. Findings: Lower chest: Lung bases clear. General abdomen: No ascites. No free air. Liver : Normal in size and attenuation. No masses seen. Gallbladder/Biliary Tree: Status post cholecystectomy. No intrahepatic or extrahepatic biliary ductal dilatation. Pancreas: Normal. Spleen: Normal in size and attenuation. Adrenal glands: Normal. Kidneys: Bilateral duplicated renal collecting systems. No hydronephrosis. No hydronephrosis or hydroureter. No renal masses identified. Gastrointestinal: The stomach is unremarkable. Contrast passes through the small bowel without evidence of obstruction, extending to the terminal ileum. Normal appendix. Colon is unremarkable in to the rectum where there is a prominent stool burden measuring approximately 5.5 cm diameter with adjacent rectal wall inflammatory thickening. No mural air. No perirectal fluid collection. Lymph nodes: No lymphadenopathy. Vessels: Mild atherosclerosis. No aortic aneurysm. Pelvic Organs: Status post hysterectomy. The bladder is unremarkable. Soft tissues: Unremarkable. Bones: Transitional lumbosacral anatomy with a partially lumbarized S1 vertebral body. No acute osseous abnormality. Impression: 1. Prominent stool at the rectum with adjacent rectal wall thickening and inflammatory changes. Findings may represent proctitis/stercoral colitis. No pneumatosis. No perirectal abscess identified. 2. Bilateral duplex kidneys. No hydronephrosis or nephrolithiasis. ------ Exposure: One or more of the following individualized dose reduction techniques were utilized for this examination: 1. Automated exposure control 2. Adjustment of the mA and/or kV according to patient size 3. Use of iterative reconstruction technique. Electronically signed by: Umer Fernandes MD (05/23/2021 5:07 PM) [id number] Heart Score: C/O Chest Pain: Yes HEART Score for Chest Pain: HEART Score for Chest Pain Response (Comments) Value History Slighlty/Non-Suspicious 0 ECG Normal 0 Age < 45 0 Risk Factors No Risk Factors 0 Troponin < Normal Limit 0 Total 0 Risk Factors: Risk Factors: DM, Current or recent (<one month) smoker, HTN, HLP, family history of CAD, obesity. Risk Scores: Score 0 - 3: 2.5% MACE over next 6 weeks - Discharge Home Score 4 - 6: 20.3% MACE over next 6 weeks - Admit for Clinical Observation Score 7 - 10: 72.7% MACE over next 6 weeks - Early Invasive Strategies Course & Med Decision Making: Course & Med Decision Making Pertinent Labs and Imaging studies reviewed. (See chart for details) Patient stable for discharge with outpatient follow-up with PCP. Discussed findings and plan with patient, who acknowledges understanding and agreement. Jeanmarie Disclaimer: Jeanmarie Disclaimer: This electronic medical record was generated, in whole or in part, using a voice recognition dictation system. Departure Departure: Impression: Primary Impression: Atypical chest pain Disposition: HOME / SELF CARE / HOMELESS Condition: STABLE Referrals: HERSON ANDERSON DO (PCP) Patient Instructions: Chest Pain (Nonspecific), [id number], Musculoskeletal Pain Additional Instructions: ICE area of discomfort 20 min on then leave off next 20 mins. Repeat several times for next few days. May continue Ibuprofen for pain or discomfort. Scripts Orphenadrine Citrate (ORPHENADRINE CITRATE) 100 Mg Tablet.er 1 TAB PO BID PRN for MUSCLE PAIN, #14 TAB 0 Refills Prov: LAUREN CHAVARRIA DO 05/23/21 LAUREN CHAVARRIA DO May 23, 2021 18:53
[2021-05-23 18:54] LABS: ALBUMIN/GLOBULIN RATIO 0.7 (1.0-1.7); ALK PHOS 50 U/L (46-116); ALT (SGPT) 30 U/L (14-59); AST (SGOT) 21 U/L (15-37); LIPASE 134 U/L (73-393); MAGNESIUM 1.7 mg/dL (1.8-2.4); TOTAL BILIRUBIN 0.2 mg/dL (0.2-1.0); TOTAL PROTEIN 7.3 g/dL (6.4-8.2)
== END 2021-05-23 19:14 | disposition home or self-care (01) ==
LOC: ER 17:15
DX: R07.89 Other chest pain (principal); E03.9 Hypothyroidism, unspecified
CPT/HCPCS: 36415; 71045; 80053; 82553; 83690; 83735; 83880; 84484; 85025; 93005; 96374; 99285; J1885

== ENCOUNTER 2021-06-24 13:26 | Emergency (ER) | payer OTHER ==
[~2021-06-24] VITALS: Ht 157.5 cm; Wt 133.0 kg
[~2021-06-24 13:26] MED LIST changes: +ORPH-16 PO
[2021-06-24 13:38] VITALS: BP 164/92
[2021-06-24] MEDS ORDERED: CYCL-331 PO (13:52)
--- NOTE | 2021-06-24 13:53 | PHYS DOC ---
Past History Past Medical History: Hyperthyroid Additional Past Medical Histor: overactive thyroid (FIDEL TAMAYO APRN) Past Surgical History: No Surgical History (FIDEL TAMAYO APRN) Smoking: Non-smoker Alcohol Use: None Drug Use: None (FIDEL TAMAYO APRN) General Adult EDM: Chief Complaint: HEADACHE HPI: HPI: Patient is a 40-year-old female who presents with neck pain. Patient states 4 days ago she woke up with the pain in her neck. Denies fever. Denies recent illness. "I might of slept on my neck wrong". Patient states she is taking ibuprofen 1 time which did help the pain some. Denies taking anything else for discomfort. Denies medical history. (FIDEL TAMAYO APRN) Review of Systems: Review of Systems: Constitutional: Denies fever or chills Eyes: Denies change in visual acuity HENT: Denies nasal congestion or sore throat Respiratory: Denies cough or shortness of breath Cardiovascular: Denies chest pain or edema GI: Denies abdominal pain, nausea, vomiting, bloody stools or diarrhea : Denies dysuria Musculoskeletal: Reports neck pain Integument: Denies rash Neurologic: Denies headache, focal weakness or sensory changes Endocrine: Denies polyuria or polydipsia Lymphatic: Denies swollen glands Psychiatric: Denies depression or anxiety (FIDEL TAMAYO APRN) Allergies: Allergies: Allergies Coded Allergies Type Severity Reaction Last Updated Verified No Known Drug Allergies 09/04/20 No (FIDEL TAMAYO APRN) Physical Exam: PE: Constitutional: Well developed, well nourished, no acute distress, non-toxic appearance. [] HENT: Normocephalic, atraumatic, bilateral external ears normal, oropharynx moist, no oral exudates, nose normal. [] Eyes: PERRLA, EOMI, conjunctiva normal, no discharge. [] Neck: Normal range of motion, tenderness Cardiovascular:Heart rate regular rhythm, no murmur [] Lungs & Thorax: Bilateral breath sounds clear to auscultation [] Abdomen: Bowel sounds normal, soft, no tenderness, no masses, no pulsatile masses. [] Skin: Warm, dry, no erythema, no rash. [] Back: No tenderness, no CVA tenderness. [] Extremities: No tenderness, no cyanosis, no clubbing, ROM intact, no edema. [] Neurologic: Alert and oriented X 3, normal motor function, normal sensory function, no focal deficits noted. [] Psychologic: Affect normal, judgement normal, mood normal. [] (FIDEL TAMAYO APRN) Current Patient Data: Vital Signs: Vital Signs Date Time Temp Pulse Resp B/P (MAP) Pulse Ox O2 Delivery O2 Flow Rate FiO2 06/24/21 13:38 57 18 164/92 [phone] 99 (FIDEL TAMAYO APRN) Labs: Current Medications Medications (Trade) Dose Ordered Sig/Kem Route PRN Reason Start Time Stop Time Status Last Admin Dose Admin Ketorolac Tromethamine (Toradol 15mg Vial) 15 mg 1X ONCE IM 06/24/21 14:00 06/24/21 14:01 DC Cyclobenzaprine HCl (Flexeril) 10 mg 1X ONCE PO 06/24/21 14:00 06/24/21 14:01 DC (NORA BEJARANO DO) EKG: EKG: [] (FIDEL TAMAYO APRN) Radiology/Procedures: Radiology/Procedures: [] (FIDEL TAMAYO APRN) Heart Score: C/O Chest Pain: No Risk Factors: Risk Factors: DM, Current or recent (<one month) smoker, HTN, HLP, family history of CAD, obesity. Risk Scores: Score 0 - 3: 2.5% MACE over next 6 weeks - Discharge Home Score 4 - 6: 20.3% MACE over next 6 weeks - Admit for Clinical Observation Score 7 - 10: 72.7% MACE over next 6 weeks - Early Invasive Strategies (FIDEL TAMAYO APRN) Course & Med Decision Making: Course & Med Decision Making Pertinent Labs and Imaging studies reviewed. (See chart for details) [] 40-year-old female presents with neck pain. Patient reports symptoms started 4 days ago. Patient's woke up with the pain. Patient most likely has a muscle strain. Patient given Toradol and Flexeril while in the emergency room and also sent home with prescription. Patient is hemodynamically stable. Advised patient to follow-up with her PCP if pain continues. (FIDEL TAMAYO APRN) Dragon Disclaimer: Dragon Disclaimer: This electronic medical record was generated, in whole or in part, using a voice recognition dictation system. (FIDEL TAMAYO APRN) Attending Co-Sign The patient was seen and interviewed as well as examined at the bedside. The chart was reviewed. The case was discussed. Agree with the plan of care. (NORA BEJARANO DO) Departure Departure: Impression: Primary Impression: Acute strain of neck muscle Qualified Codes: S16.1XXA - Strain of muscle, fascia and tendon at neck level, initial encounter Disposition: HOME / SELF CARE / HOMELESS Condition: STABLE Referrals: HERSON ANDERSON DO (PCP) Patient Instructions: Soft Tissue Injury of the Neck, [id number] Additional Instructions: You most likely have strained a muscle in your neck. Continue taking ibuprofen at home along with the Flexeril as a prescribed for you. It can make you drowsy so make sure you take it when you will not be driving or working. Follow-up with your PCP if pain continues. Return to emergency room with worsening symptoms or concerns EMERGENCY DEPARTMENT GENERAL DISCHARGE INSTRUCTIONS Thank you for coming to [facility] (ED) today and trusting us with you care. We trust that you had a positivie experience in our Emergency Department. If you wish to speak to the department management, you may call the director at [phone]. YOUR FOLLOW UP INSTRUCTIONS ARE FOLLOWS: 1. Do you have a private Doctor? If you do not have a private doctor, please ask for a resource list of physicians or clinics that may be able to assist you with follow up care. 2. The Emergency Physician has interpreted your x-rays. The X-Ray specialist will also review them. If there is a change in the findings, you will be notified in 48 hours when at all possible. 3. A lab test or culture has been done, your results will be reviewed and you will be notified if you need a change in treatment. ADDITIONAL INSTRUCTIONS AND INFORMATION: 1. Your care today has been supervised by a physician who is specially trained in emergency care. Many problems require more than one evaluation for a complete diagnosis and treatment. We recommend that you schedule your follow up appointment as recommended to ensure complete treatment of you illness or injury. If you are unable to obtain follow up care and continue to have a problem, or if your condition worsens, we recommend that you return to the ED. 2. We are not able to safely determine your condition over the phone nor are we able to give sound medical advice over the phone. For these safety reasons, if you call for medical advice we will ask you to come to the ED for further evaluation. 3. If you have any questions regarding these discharge instructions please call the ED at [phone]. SAFETY INFORMATION: In the interest of safety, wellness, and injury prevention; we encourage you to wear your sealbelt, if you smoke; quite smoking, and we encourage family to use a protective helmet for bicycling and other sporting events that present an increased risk for head injury. IF YOUR SYMPTOMS WORSEN OR NEW SYMPTOMS DEVELOP, OR YOU HAVE CONCERNS ABOUT YOUR CONDITION; OR IF YOUR CONDITION WORSENS WHILE YOU ARE WAITING FOR YOUR FOLLOW UP APPOINTMENT; EITHER CONTACT YOUR PRIMARY CARE DOCTOR, THE PHYSICIAN WHOSE NAME AND NUMBER YOU WERE GIVEN, OR RETURN TO THE ED IMMEDIATELY. Scripts Cyclobenzaprine Hcl (CYCLOBENZAPRINE HCL) 10 Mg Tablet 1 TAB PO TID for PAIN for 10 Days, #30 TAB Prov: FIDEL TAMAYO APRN 06/24/21 FIDEL TAMAYO APRN Jun 24, 2021 13:53 NORA BEJARANO DO Jun 25, 2021 11:14
[2021-06-24] MEDS ORDERED: KETOROLAC 15 MG/ML VIAL. IM ONE (14:00)
[2021-06-24] MEDS ORDERED: CYCLOBENZAPRINE 10 MG TABLET. PO ONE (14:00)
== END 2021-06-24 14:07 | disposition home or self-care (01) ==
LOC: ER 13:26
DX: S16.1XXA Strain of muscle, fascia and tendon at neck level, initial encounter (principal); E05.90 Thyrotoxicosis, unspecified without thyrotoxic crisis or storm; X50.9XXA Other and unspecified overexertion or strenuous movements or postures, initial encounter; Y93.89 Activity, other specified; Y92.89 Other specified places as the place of occurrence of the external cause; Y99.8 Other external cause status
CPT/HCPCS: 99283

== ENCOUNTER 2021-10-06 06:58 | Emergency (ER) | payer OTHER ==
[~2021-10-06] VITALS: Ht 157.5 cm; Wt 144.0 kg
[~2021-10-06 06:58] MED LIST changes: +CYCL10TA19 PO
--- NOTE | 2021-10-06 07:21 | PHYS DOC ---
Past History Past Medical History: Hyperthyroid Additional Past Medical Histor: overactive thyroid Past Surgical History: No Surgical History Smoking: Non-smoker Alcohol Use: None Drug Use: None Adult General Chief Complaint Chief Complaint: MULTIPLE COMPLAINTS HPI HPI Patient is a 40-year-old female presenting for URI symptoms. Reports waking up this morning with generalized headache, nasal congestion, runny nose, postnasal drip, and a dry nonproductive cough. States she had a fever shortly after waking up that was greater than 100.4, she took x1 dose of Tylenol with improvement in fever. Nonetheless, ongoing respiratory symptoms, x1 episode of nonbloody nonbilious emesis, and the fact that she has had known sick contact (her son) prompted her to come in for evaluation. She has history of hyperthyroidism for which she is on medications for it, no other medical issues. She is not vaccinated against COVID-19 Review of Systems Review of Systems Fourteen body systems of review of systems have been reviewed. See HPI for pertinent positives and negative responses, other [place] all other systems are negative, non-pertinent or non-contributory Allergies Allergies Allergies Coded Allergies Type Severity Reaction Last Updated Verified No Known Drug Allergies 10/06/21 No Physical Exam Physical Exam General: Appears well, non toxic, and comfortable Skin: Warm, dry. Normal for ethnicity. HEENT: Atraumatic. PERRLA. Rhinorrhea and congestion. Nasal turbinates boggy b/l. Moist mucous membranes. Uvula midline. Maintaining secretions. No phonation changes. Grade 3 tonsils without exudate Neck: Trachea midline. Normal ROM. No stridor. No meningeal signs or nuchal rigidity, no cervical lymphadenopathy palpated Respiratory: Normal WOB. CTAB w/o w/r/r. No tachypnea. Cardiovascular: Regular rate and rhythm. Normal peripheral perfusion. Abdomen: Soft. Non tender. No distension. Back: Normal ROM. Musculoskeletal: No swelling or deformity. Neuro: Alert and oriented x 4. MAEE. Lymph: No cervical LAD. Psych: Normal affect and mood. Current Patient Data Vital Signs Vital Signs Date Time Temp Pulse Resp B/P (MAP) Pulse Ox O2 Delivery O2 Flow Rate FiO2 10/06/21 07:11 99.0 69 20 160/93 (115) 98 Room Air EKG EKG [] Radiology/Procedures Radiology/Procedures [] Heart Score C/O Chest Pain: No Risk Factors: Risk Factors: DM, Current or recent (<one month) smoker, HTN, HLP, family history of CAD, obesity. Risk Scores: Risk Factors: DM, Current or recent (<one month) smoker, HTN, HLP, family history of CAD, obesity. Course & Med Decision Making Course & Med Decision Making ABCs unremarkable HPI physical exam unremarkable for any emergent or surgical issues. Likely viral and/or self-limiting syndrome. Cannot exclude COVID-19 in an unvaccinated individual. Rapid flu negative, PCR COVID test obtained and pending Discussed role of continued supportive care practices while self quarantining with close PCP follow-up when safe to be sent Dragon Disclaimer Dragon Disclaimer This electronic medical record was generated, in whole or in part, using a voice recognition dictation system. Departure Departure: Impression: Primary Impression: Viral syndrome Additional Impression: Person under investigation for COVID-19 Disposition: HOME / SELF CARE / HOMELESS Condition: STABLE Referrals: HERSON ANDERSON DO (PCP) Additional Instructions: You were seen for headache, fever, body aches, and possible infection with COVID-19. Your physical exam was reassuring. We tested you for COVID-19 but this test does not come back for 1 to 2 days. In the meantime you need to quarantine yourself at home away from all other individuals, especially those who are elderly or have any other chronic health issues or an immunocompromised status. You should return to the ED if you develop worsening cough, shortness of breath, chest pain, or any other new or concerning symptoms. Alternate Tylenol and ibuprofen as needed for body aches and pain. If your test does come back positive you need to quarantine yourself for 10 days until symptom-free. You should make sure to drink plenty of fluids and get plenty of rest. Problem Qualifiers DEYVI BLAKE DO Oct 06, 2021 07:21
[2021-10-06] MEDS ORDERED: ONDANSETRON ODT 4 MG TAB.RAPDIS PO ONE (08:00)
[2021-10-06] MEDS: KETOROLAC 30 MG/ML VIAL. IM ONE ×2 (08:12→08:15)
[2021-10-06 08:19] LABS: INFLUENZA A PATIENT NEGATIVE (NEGATIVE); INFLUENZA B PATIENT NEGATIVE (NEGATIVE)
[2021-10-06 08:20] VITALS: BP 146/80
== END 2021-10-06 08:20 | disposition home or self-care (01) ==
LOC: ER 06:58
DX: U07.1 COVID-19 (principal); B34.9 Viral infection, unspecified; E03.9 Hypothyroidism, unspecified
CPT/HCPCS: 81025; 87804; 96372; 99283; C9803; J1885; Q0162; U0003

== ENCOUNTER 2022-01-15 11:27 | Emergency (ER) | payer OTHER ==
[~2022-01-15] VITALS: Ht 157.5 cm; Wt 144.0 kg
[2022-01-15] MEDS ORDERED: FAMOTIDINE 20 MG TABLET PO ONE (11:45)
[2022-01-15] MEDS ORDERED: LIDO:MAALOX 1:1 20 ML SINGLE DOSE. PO ONE (11:45)
[2022-01-15] MEDS ORDERED: LIDO:MAALOX 1:1 20 ML SINGLE DOSE. ONE (11:48)
[2022-01-15] MEDS ORDERED: FAMOTIDINE 20 MG TABLET ONE (11:48)
--- NOTE | 2022-01-15 12:11 | RAD ---
AP chest. HISTORY: Chest pain AP view was taken of the chest. Heart is upper normal in size. There is no effusion. There are no acu te infiltrates. IMPRESSION: 1. No acute chest disease. Electronically signed by: Art Rosado MD (01/15/2022 12:09 PM) [id number]
[2022-01-15 12:16] LABS: BASO % 1 % (0-3); EOS # 0.1 x10^3/uL (0.0-0.7); EOS % 3 % (0-3); HEMATOCRIT 38.3 % (36.0-47.0); HEMOGLOBIN 12.6 g/dL (12.0-15.5); LYMPH # 1.8 x10^3/uL (1.0-4.8); LYMPH % 42 % (24-48); MEAN CORPUSCULAR HEMOGLOBIN 29 pg (25-35); MEAN CORPUSCULAR HGB CONC 33 g/dL (31-37); MEAN CORPUSCULAR VOLUME 88 fL (79-100); MONO # 0.3 x10^3/uL (0.0-1.1); MONO % 7 % (0-9); NEUT # 2.1 x10^3uL (1.8-7.7); NEUT % 48 % (31-73); PLATELET COUNT 195 x10^3/uL (140-400); RED BLOOD COUNT 4.35 x10^6/uL (3.50-5.40); RED CELL DISTRIBUTION WIDTH 13.1 % (11.5-14.5); WHITE BLOOD COUNT 4.4 x10^3/uL (4.0-11.0)
[2022-01-15 12:22] LABS: CALCIUM 8.6 mg/dL (8.5-10.1); CREATININE 0.9 mg/dL (0.6-1.0); GFR 83.9; POTASSIUM 4.2 mmol/L (3.5-5.1)
[2022-01-15 12:35] LABS: ALBUMIN/GLOBULIN RATIO 0.8 (1.0-1.7); MAGNESIUM 1.6 mg/dL (1.8-2.4); TOTAL BILIRUBIN 0.4 mg/dL (0.2-1.0); TOTAL PROTEIN 6.8 g/dL (6.4-8.2)
[2022-01-15] MEDS ORDERED: IOHEXOL 350 MG/ML 100 ML VIAL. IV ONE ×2 (13:15→14:30)
[2022-01-15] MEDS ORDERED: IOHEXOL 300 MG/ML 75 ML VIAL. IV ONE (13:45)
[2022-01-15 14:06] VITALS: BP 120/67
--- NOTE | 2022-01-15 14:07 | EKG ---
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
--- NOTE | 2022-01-15 15:05 | RAD ---
CTA CHEST INDICATION: CP ELEVATED D DIMER GIVEN 100 +75 ML DUE TO FAULTY IV LINE Comparison: Chest radiograph 01/15/2022. TECHNIQUE: Following the uneventful administration of intravenous contrast, 175 cc Isovue-370, axial CT sections were obtained through the lungs and upper abdomen. Multiplanar reconstructions and MIP im ages were obtained. PQRS compliance statement: One or more of the following individualized dose reduction techniques were utilized for this examinat ion: 1. Automated exposure control 2. Adjustment of the mA and/or kV according to patient size 3. Use of iterative reconstruction technique FINDINGS: Pulmonary arteries: No evidence of pulmonary thromboembolic disease Lungs and Airways: No pulmonary mass or consolidation. No abnormality of the central airways. Pleura: The pleural spaces are normal. Heart and Mediastinum: The visualized thyroid is normal in size and attenuation. No axillary or supra clavicular lymphadenopathy. No mediastinal, hilar or retrocrural lymphadenopathy. The heart and peric ardium are within normal limits. The great vessels of the thorax are normal. Abdomen: Limited images through the upper abdomen show no abnormality of the visualized organs. Bones and Soft Tissues: The visualized bones and chest wall soft tissues are within normal limits. IMPRESSION: 1. No evidence of pulmonary thromboembolic disease. 2. No pulmonary mass or consolidation Electronically signed by: Lior Sanchez MD (01/15/2022 3:02 PM) [facility]
[2022-01-15 15:51] LABS: BACTERIA,URINE FEW /HPF (0-FEW); CLARITY,URINE CLEAR; COLOR,URINE YELLOW; GLUCOSE,URINE NEG (NEG); NITRITE,URINE NEG (NEG); RBC,URINE 0 /HPF (0-2); UROBILINOGEN,URINE 0.2 mg/dL (0.2 mg/dL)
[2022-01-15 15:52] LABS: SQUAMOUS EPITHELIAL CELL,UR MOD /LPF
[2022-01-15] MEDS ORDERED: FAMO-63 PO (16:12)
[2022-01-15] MEDS ORDERED: SUCR1TAB35 PO (16:12)
--- NOTE | 2022-01-15 16:12 | PHYS DOC ---
Past History Past Medical History: Hyperthyroid Additional Past Medical Histor: overactive thyroid Past Surgical History: No Surgical History Smoking: Non-smoker Alcohol Use: Occasionally Drug Use: None General Adult EDM: Chief Complaint: CHEST PAIN HPI: HPI: Patient is a 41-year-old female who presents with chest pain. The patient describes it as a "pulling sensation" from the inside of her chest. She does not have any pressure and does not have any shortness of breath. She denies any nausea, vomiting or diaphoresis. The pain does not radiate anywhere at this time. She has not had a fever or cough. No history of cardiac disease. She does not have a history of high blood pressure or diabetes and denies any illicit drug use. Denies any history of COPD or lung disease as well. Review of Systems: Review of Systems: Constitutional: Denies fever Eyes: Denies change in visual acuity or eye pain HENT: Denies sore throat Respiratory: Denies shortness of breath Cardiovascular: Reports chest pain GI: Denies abd pain : Denies dysuria Musculoskeletal: Denies back or extremity injury Integument: Denies rash or skin lesions Neurologic: Denies headache, focal weakness or sensory changes All other systems were reviewed and found to be within normal limits, except as documented in this note. Current Medications: Current Meds: Current Medications Medications (Trade) Dose Ordered Sig/Kem Start Time Stop Time Status Last Admin Dose Admin Famotidine (Pepcid) 20 mg STK-MED ONCE 01/15/22 11:48 01/15/22 11:48 DC Iohexol (Omnipaque 300 Mg/ml) 75 ml 1X ONCE 01/15/22 13:45 01/15/22 13:46 DC Iohexol (Omnipaque 350 Mg/ml) 100 ml 1X ONCE 01/15/22 14:30 01/15/22 14:36 DC 01/15/22 14:32 100 ML Multi-Ingredient Mouthwash/Gargle (Gi Cocktail) 20 ml STK-MED ONCE 01/15/22 11:48 01/15/22 11:48 DC Allergies: Allergies: Allergies Coded Allergies Type Severity Reaction Last Updated Verified No Known Drug Allergies 10/06/21 No Physical Exam: PE: Constitutional: Well developed, well nourished, no acute distress, non-toxic appearance. HENT: Normocephalic, atraumatic, bilateral external ears normal, mucosa moist, nose normal. Eyes: EOMI, conjunctiva normal, no discharge. Neck: Normal range of motion, supple, no stridor, no meningeal signs. Cardiovascular: Regular rate and rhythm Lungs & Thorax: Bilateral breath sounds clear to auscultation Abdomen: Soft, no tenderness or obvious masses Skin: Warm, dry, no erythema, no rash. Extremities: No tenderness, no cyanosis, no clubbing, ROM intact, no edema. Neurologic: Alert and oriented, normal motor function, normal sensory function, no focal deficits noted. Psychologic: Affect normal, judgement normal, mood normal. Current Patient Data: Labs: Laboratory Tests Test 01/15/22 12:00 01/15/22 13:55 01/15/22 14:40 01/15/22 15:10 White Blood Count 4.4 x10^3/uL (4.0-11.0) Red Blood Count 4.35 x10^6/uL (3.50-5.40) Hemoglobin 12.6 g/dL (12.0-15.5) Hematocrit 38.3 % (36.0-47.0) Mean Corpuscular Volume 88 fL (79-100) Mean Corpuscular Hemoglobin 29 pg (25-35) Mean Corpuscular Hemoglobin Concent 33 g/dL (31-37) Red Cell Distribution Width 13.1 % (11.5-14.5) Platelet Count 195 x10^3/uL (140-400) Neutrophils (%) (Auto) 48 % (31-73) Lymphocytes (%) (Auto) 42 % (24-48) Monocytes (%) (Auto) 7 % (0-9) Eosinophils (%) (Auto) 3 % (0-3) Basophils (%) (Auto) 1 % (0-3) Neutrophils # (Auto) 2.1 x10^3uL (1.8-7.7) Lymphocytes # (Auto) 1.8 x10^3/uL (1.0-4.8) Monocytes # (Auto) 0.3 x10^3/uL (0.0-1.1) Eosinophils # (Auto) 0.1 x10^3/uL (0.0-0.7) Basophils # (Auto) 0.0 x10^3/uL (0.0-0.2) D-Dimer (Brenna) 2.52 mg/L (0.00-0.50) H Sodium Level 142 mmol/L (136-145) Potassium Level 4.2 mmol/L (3.5-5.1) Chloride Level 106 mmol/L (98-107) Carbon Dioxide Level 29 mmol/L (21-32) Anion Gap 7 (6-14) Blood Urea Nitrogen 10 mg/dL (7-20) Creatinine 0.9 mg/dL (0.6-1.0) Estimated GFR (Cockcroft-Gault) 83.9 BUN/Creatinine Ratio 11 (6-20) Glucose Level 112 mg/dL (70-99) H Calcium Level 8.6 mg/dL (8.5-10.1) Magnesium Level 1.6 mg/dL (1.8-2.4) L Total Bilirubin 0.4 mg/dL (0.2-1.0) Aspartate Amino Transferase (AST) 15 U/L (15-37) Alanine Aminotransferase (ALT) 23 U/L (14-59) Alkaline Phosphatase 47 U/L (46-116) Troponin I High Sensitivity 7 ng/L (4-50) 7 ng/L (4-50) DW-Ran-W-Type Natriuretic Peptide 41 pg/mL (0-124) Total Protein 6.8 g/dL (6.4-8.2) Albumin 3.0 g/dL (3.4-5.0) L Albumin/Globulin Ratio 0.8 (1.0-1.7) L Lipase 142 U/L (73-393) POC Urine HCG, Qualitative hcg negative (Negative) Urine Collection Type Unknown Urine Color Yellow Urine Clarity Clear Urine pH 5.5 Urine Specific [place] 1.025 Urine Protein Neg (NEG-TRACE) Urine Glucose (UA) Neg mg/dL (NEG) Urine Ketones (Stick) Neg mg/dL (NEG) Urine Blood Neg (NEG) Urine Nitrite Neg (NEG) Urine Bilirubin Neg (NEG) Urine Urobilinogen Dipstick 0.2 mg/dL (0.2 mg/dL) Urine Leukocyte Esterase Trace (NEG) Urine RBC 0 /HPF (0-2) Urine WBC 5-10 /HPF (0-4) Urine Squamous Epithelial Cells Mod /LPF Urine Bacteria Few /HPF (0-FEW) Urine Mucus Slight /LPF Vital Signs: Vital Signs Date Time Temp Pulse Resp B/P (MAP) Pulse Ox O2 Delivery O2 Flow Rate FiO2 01/15/22 11:32 70 18 127/67 (87) 100 Room Air EKG: EKG: [] Twelve-lead EKG demonstrates a sinus rhythm with an overall rate of 66. AL, QRS and QT corrected intervals are within normal limits. No ST segment elevation or depression. Radiology/Procedures: Radiology/Procedures: [] Impressions: PATIENT: BAILEY JAMESCOUNT: [id number] : 1980 LOCATION: ER AGE: 41 SEX: F EXAM STATUS: REG ER ORD. PHYSICIAN: ODALIS GORDILLO MD REASON: chest pain PROCEDURE: CHEST AP ONLY AP chest. HISTORY: Chest pain AP view was taken of the chest. Heart is upper normal in size. There is no effusion. There are no acute infiltrates. IMPRESSION: 1. No acute chest disease. Electronically signed by: Art Rosado MD (01/15/2022 12:09 PM) [id number] DICTATED AND SIGNED BY: ART ROSADO MD DATE: 01/15/22 1208 CC: HERSON ANDERSON DO; ODALIS GORDILLO MD ~ PATIENT: BAILEY JAMESCOUNT: [id number] : 1980 LOCATION: ER AGE: 41 SEX: F EXAM STATUS: REG ER ORD. PHYSICIAN: ODALIS GORDILLO MD REASON: CP ELEVATED D DIMER GIVEN 100 +75 ML DUE TO FAULTY IV LINE PROCEDURE: CT ANGIOGRAPHY CHEST CTA CHEST INDICATION: CP ELEVATED D DIMER GIVEN 100 +75 ML DUE TO FAULTY IV LINE Comparison: Chest radiograph 01/15/2022. TECHNIQUE: Following the uneventful administration of intravenous contrast, 175 cc Isovue-370, axial CT sections were obtained through the lungs and upper abdomen. Multiplanar reconstructions and MIP images were obtained. PQRS compliance statement: One or more of the following individualized dose reduction techniques were utili zed for this examination: 1. Automated exposure control 2. Adjustment of the mA and/or kV according to patient size 3. Use of iterative reconstruction technique FINDINGS: Pulmonary arteries: No evidence of pulmonary thromboembolic disease Lungs and Airways: No pulmonary mass or consolidation. No abnormality of the central airways. Pleura: The pleural spaces are normal. Heart and Mediastinum: The visualized thyroid is normal in size and attenuation. No axillary or supraclavicular lymphadenopathy. No mediastinal, hilar or retrocrural lymphadenopathy. The heart and pericardium are within normal limits. The great vessels of the thorax are normal. Abdomen: Limited images through the upper abdomen show no abnormality of the visualized organs. Bones and Soft Tissues: The visualized bones and chest wall soft tissues are within normal limits. IMPRESSION: 1. No evidence of pulmonary thromboembolic disease. 2. No pulmonary mass or consolidation Electronically signed by: Florencia Sanchez MD (01/15/2022 3:02 PM) [facility] DICTATED AND SIGNED BY: FLORENCIA SANCHEZ MD DATE: 01/15/22 1457 CC: HERSON ANDERSON DO; ODALIS GORDILLO MD ~ Heart Score: C/O Chest Pain: Yes HEART Score for Chest Pain: HEART Score for Chest Pain Response (Comments) Value History Slighlty/Non-Suspicious 0 ECG Normal 0 Age < 45 0 Risk Factors No Risk Factors 0 Troponin < Normal Limit 0 Total 0 Risk Factors: Risk Factors: DM, Current or recent (<one month) smoker, HTN, HLP, family history of CAD, obesity. Risk Scores: Score 0 - 3: 2.5% MACE over next 6 weeks - Discharge Home Score 4 - 6: 20.3% MACE over next 6 weeks - Admit for Clinical Observation Score 7 - 10: 72.7% MACE over next 6 weeks - Early Invasive Strategies Course & Med Decision Making: Course & Med Decision Making Pertinent Labs and Imaging studies reviewed. (See chart for details) [] This is a 41-year-old female presents with chest pain. This is somewhat atypical in description. Patient has a heart score of 0 or 1 at the most. Troponin was obtained and repeated at the 3-hour point. It was unchanged and within normal limits. Her EKG is nonischemic. CT of the chest was done as the patient's D-dimer was elevated. CT is negative for any acute process as well. Patient was given a GI cocktail and Pepcid with some resolution of symptoms. She still has some discomfort but I think this is extremely unlikely to be cardiac in etiology. We will discharge her with prescriptions for Pepcid and Carafate and have her follow-up with her primary care physician. She is to return to the emergency department if symptoms become worse or other concerns arise, she is stable for discharge at this time. Jeanmarie Disclaimer: Jeanmarie Disclaimer: This electronic medical record was generated, in whole or in part, using a voice recognition dictation system. Departure Departure: Impression: Primary Impression: Atypical chest pain Disposition: HOME / SELF CARE / HOMELESS Condition: STABLE Referrals: HERSON ANDERSON DO (PCP) Patient Instructions: Chest Pain (Nonspecific), Diet for Gastroesophageal Reflux Disease, Adult, Gastroesophageal Reflux Disease, Adult Scripts Sucralfate (CARAFATE) 1 Gm Tablet 1 GM PO TID for abdominal pain for 30 Days, #90 TAB Prov: ODALIS GORDILLO MD 01/15/22 Famotidine (PEPCID) 20 Mg Tablet 1 TAB PO BID for abd pain, #60 TAB 3 Refills Prov: ODALIS GORDILLO MD 01/15/22 ODALIS GORDILLO MD Jan 15, 2022 16:12
== END 2022-01-15 16:40 | disposition home or self-care (01) ==
LOC: ER 11:27
DX: R07.89 Other chest pain (principal); E05.90 Thyrotoxicosis, unspecified without thyrotoxic crisis or storm
CPT/HCPCS: 36415; 71045; 71275; 80053; 81001; 81025; 83690; 83735; 83880; 84484; 85025; 85379; 93005; 99285; Q9967